=== PATIENT | male | born 1955 | race Hispanic/Latino ===

== ENCOUNTER 2018-03-08 15:17 | Outpatient (CLI) | payer OTHER ==
--- NOTE | 2018-03-08 16:48 | XRay Report ---
XRAY CHEST TWO VIEWS: 03/08/18 15:17:00 CLINICAL: Cough. COMPARISON: None FINDINGS: Normal heart and pulmonary vasculature. The lungs are mildly hyperexpanded and hyperlucent. A 1.5 cm posterior left lower lobe calcified lung nodule on both views. The center of the nodule is more densely calcified than the periphery. Numerous calcified mediastinal and hilar lymph nodes. No airspace disease or pleural effusion. The bones and soft tissues are unremarkable. IMPRESSION: Old granulomatous disease with a 1.5 cm calcified granuloma of the left lower lobe.No acute cardiopulmonary process. Mild COPD.
== END 2018-03-08 15:18 | disposition home or self-care (01) ==
LOC: SPVIMAG 15:17
PROVIDERS: ATTEND Family Medicine
DX: J84.10 Pulmonary fibrosis, unspecified (principal); J44.9 Chronic obstructive pulmonary disease, unspecified
CPT/HCPCS: 71046

== ENCOUNTER 2021-02-20 21:30 | Emergency (ER) | payer MEDICARE, OTHER ==
--- NOTE | 2021-02-21 01:18 | XRay Report ---
EXAMINATION: Right ankle radiograph, 3 views, 02/21/2021 CLINICAL INFORMATION: Right ankle pain COMPARISON: None. FINDINGS: There is no evidence of acute fracture or dislocation of the right ankle. Mild soft tissue swelling may be present. Bony structures appear mildly demineralized. Signer Name: Marissa Gonzales MD Signed: 02/21/2021 1:13 AM Workstation Name: [id number]
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
[2021-02-21] MEDS ORDERED: ONDANSETRON 4 MG ODT TAB PO ONE (01:57)
[2021-02-21] MEDS ORDERED: HYDROmorphone 1 MG/1 ML INJ IM ONE ×2 (01:57→03:07)
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
[2021-02-21 05:05] VITALS: BP 168/89
== END 2021-02-21 04:20 | disposition home or self-care (01) ==
LOC: ED 21:30
DX: S82.141A Displaced bicondylar fracture of right tibia, initial encounter for closed fracture (principal); I10 Essential (primary) hypertension; F17.200 Nicotine dependence, unspecified, uncomplicated; Z79.899 Other long term (current) drug therapy; V18.4XXA Pedal cycle driver injured in noncollision transport accident in traffic accident, initial encounter; Y93.89 Activity, other specified; Y92.410 Unspecified street and highway as the place of occurrence of the external cause; Y99.8 Other external cause status
CPT/HCPCS: 29505; 73030; 73502; 73562; 73610; 96372; 99284; J1170; Q0162